=== PATIENT | female | born 1985 | race Caucasian/White ===

== ENCOUNTER 2017-10-24 08:09 | Outpatient (CLI) | payer OTHER ==
[2017-10-24] MEDS: LR 500 ML IV (09:59)
[2017-10-24] MEDS: ONDANSETRON 4MG/2ML VIAL (J2405) IV (10:09)
[2017-10-24 10:14] LABS: HEMATOCRIT 34.8 % (36.0-47.0); MEAN CORPUSCULAR HEMOGLOBIN 28.8 pg (27.0-33.0); MEAN CORPUSCULAR HGB CONC 31.6 g/dl (32.0-36.5); MEAN CORPUSCULAR VOLUME 91.1 fl (80.0-96.0); PLATELET COUNT, AUTOMATED 128 10^3/uL (150-450); RED BLOOD COUNT 3.82 10^6/uL (4.00-5.40); RED CELL DISTRIBUTION WIDTH 22.5 % (11.5-14.5); WHITE BLOOD COUNT 12.1 10^3/uL (4.0-10.0)
[2017-10-24 10:25] LABS: AMORPHOUS SEDIMENT SMALL (NEGATIVE); APPEARANCE, URINE HAZY (CLEAR); BACTERIA, URINE AUTO 1+ (NEGATIVE); BILIRUBIN, URINE AUTO NEGATIVE (NEGATIVE); BLOOD, URINE BLOOD NEGATIVE (NEGATIVE); COLOR, URINE YELLOW (YELLOW); GLUCOSE, URINE (UA) AUTO NEGATIVE (NEGATIVE); KETONE, URINE AUTO TRACE mg/dL (NEGATIVE); LEUKOCYTE ESTERASE, URINE AUTO NEGATIVE (NEGATIVE); MUCUS, URINE SMALL (NEGATIVE); NITRITE, URINE AUTO NEGATIVE (NEGATIVE); PROTEIN, URINE AUTO NEGATIVE (NEGATIVE); RBC, URINE AUTO 2 /HPF (0-3); SPECIFIC GRAVITY URINE AUTO 1.018 (1.002-1.035); SQUAMOUS EPITHELIAL CELL UR AU 2 /HPF (0-6); WBC, URINE AUTO 3 /HPF (0-3)
[2017-10-24 11:16] LABS: ALBUMIN 2.7 GM/DL (3.2-5.2); ALBUMIN/GLOBULIN RATIO 0.84 (1.00-1.93); ALKALINE PHOSPHATASE 122 U/L (45-117); ALT/SGPT 15 U/L (12-78); ANION GAP 10 MEQ/L (8-16); AST/SGOT 16 U/L (7-37); BILIRUBIN,TOTAL 0.7 MG/DL (0.2-1.0); BLOOD UREA NITROGEN 7 MG/DL (7-18); CALCIUM LEVEL 8.4 MG/DL (8.5-10.1); CARBON DIOXIDE LEVEL 22 MEQ/L (21-32); CHLORIDE LEVEL 107 MEQ/L (98-107); CREATININE FOR GFR 0.45 MG/DL (0.55-1.30); GLOMERULAR FILTRATION RATE > 60.0 (>60); GLUCOSE, FASTING 80 MG/DL (70-100); POTASSIUM SERUM 3.5 MEQ/L (3.5-5.1); SODIUM LEVEL 139 MEQ/L (136-145); TOTAL PROTEIN 5.9 GM/DL (6.4-8.2)
[2017-10-24] MEDS: LR 1,000 ML IV (11:40)
== END 2017-10-24 20:05 | disposition home or self-care (01) ==
LOC: M LDO 08:09
DX: O21.9 Vomiting of pregnancy, unspecified (principal); O30.043 Twin pregnancy, dichorionic/diamniotic, third trimester; O47.03 False labor before 37 completed weeks of gestation, third trimester; Z3A.32 32 weeks gestation of pregnancy
CPT/HCPCS: J2405

== ENCOUNTER 2017-11-18 09:19 | Outpatient (CLI) | payer OTHER | END 2017-11-18 10:57 | disposition home or self-care (01) | LOC: M LDO 09:19 | DX: O30.043 Twin pregnancy, dichorionic/diamniotic, third trimester (principal); Z3A.36 36 weeks gestation of pregnancy; O47.03 False labor before 37 completed weeks of gestation, third trimester | CPT/HCPCS: 59025 ==

== ENCOUNTER 2017-11-21 10:41 | Inpatient (IN) | payer OTHER ==
[2017-11-21 11:46] LABS: HEMOGLOBIN 11.9 g/dl (12.0-15.5); MEAN CORPUSCULAR HEMOGLOBIN 28.9 pg (27.0-33.0); MEAN CORPUSCULAR HGB CONC 32.2 g/dl (32.0-36.5); MEAN CORPUSCULAR VOLUME 89.8 fl (80.0-96.0); PLATELET COUNT, AUTOMATED 126 10^3/uL (150-450); RED BLOOD COUNT 4.12 10^6/uL (4.00-5.40); RED CELL DISTRIBUTION WIDTH 19.4 % (11.5-14.5); WHITE BLOOD COUNT 10.4 10^3/uL (4.0-10.0)
[2017-11-21] MEDS: PENICILLIN G POTASSIUM IV 5 MU in D5W MINI-BAG PLUS 100 ML IV (12:22)
[2017-11-21] MEDS: BETAMETHASONE SOLUSPAN 6MG/ML INJ 5ML (J0702) IM (12:29)
[2017-11-21] MEDS: miSOPROStol 50 MCG 1/2 TAB (S0191) PO (12:33)
[2017-11-21] MEDS: PENICILLIN G POTASSIUM IV 2.5 MU in APPROPRIATE DILUENT 1 EA IV ×2 (16:31→20:32)
[2017-11-21] MEDS: OXYTOCIN DRIP 30 UNITS in APPROPRIATE DILUENT 1 EA IV (17:39)
[2017-11-21] MEDS: LR 1,000 ML IV ×2 (17:44→20:44)
[2017-11-21] MEDS: LACTATED RINGER'S 1000 ML IV (20:35)
[2017-11-21] MEDS ORDERED: FENTANYL 2MCG/ML ROPIVACAINE 0.2% IN 0.9% NACL 200ML IVBAG As Ordered (20:50)
[2017-11-21] MEDS ORDERED: EPIDURAL COMMENT XX (22:00)
[2017-11-21] MEDS ORDERED: REFRIGERATOR IV KEYS XX (22:00)
[2017-11-21] MEDS ORDERED: NALOXONE INJ 0.4 MG/1 ML VIAL (J2310) IV (22:00)
[2017-11-21] MEDS ORDERED: ePHEDrine SULFATE 25 MG/5 ML(5MG/ML) SYRINGE IV (22:00)
[2017-11-21] MEDS ORDERED: EPIDURAL/PCA KEYS XX (22:00)
[2017-11-21] MEDS ORDERED: diphenhydrAMINE INJ 50MG/ML VIAL (J1200) IV (22:00)
[2017-11-21] MEDS ORDERED: LACTATED RINGER'S 1000 ML IV (22:00)
[2017-11-21] MEDS: FENTANYL/ROPIVACAINE/NACL BAG 200 ML EPIDURAL (22:36)
[2017-11-22] MEDS: PENICILLIN G POTASSIUM IV 2.5 MU in APPROPRIATE DILUENT 1 EA IV (01:10)
[2017-11-22] MEDS: ONDANSETRON 4MG/2ML VIAL (J2405) IV (02:17)
[2017-11-22] MEDS ORDERED: DIBUCAINE 1% OINTMENT 30GM TOP (04:00)
[2017-11-22] MEDS ORDERED: IBUPROFEN 800 MG TAB PO (04:00)
[2017-11-22] MEDS ORDERED: RHOGAM 300 MCG (1500 IU) INJ (J2790) IM (04:00)
[2017-11-22] MEDS ORDERED: METOCLOPRAMIDE INJ 10MG/2ML VIAL (J2765) IV (04:00)
[2017-11-22] MEDS ORDERED: ACETAMINOPHEN TAB 650MG DOSE (2X325MG) PO (04:00)
[2017-11-22] MEDS ORDERED: MEASLES,MUMPS,RUBELLA VACCINE INJ (MMR-II) (90707) SC (04:00)
[2017-11-22] MEDS: miSOPROStol 200 MCG TAB (S0191) PR (04:26)
[2017-11-22] MEDS: OXYTOCIN DRIP 30 UNITS in APPROPRIATE DILUENT 1 EA IV (04:26)
[2017-11-22] MEDS: PRENATAL VITAMINS CHEWABLE TABLET PO (10:03)
[2017-11-22] MEDS: DOCUSATE SODIUM 100 MG CAP PO ×2 (10:03→20:38)
[2017-11-23] MEDS: PRENATAL VITAMINS CHEWABLE TABLET PO (08:19)
[2017-11-23] MEDS: DOCUSATE SODIUM 100 MG CAP PO (08:20)
== END 2017-11-23 11:15 | disposition home or self-care (01) | DRG 775 ==
LOC: M LDI 10:41 → M OBS 11-22 06:18
PROVIDERS: Obstetrics & Gynecology
PROC: 3E0DXGC Introduction of Other Therapeutic Substance into Mouth and Pharynx, External Approach (ICD-10-PCS; 2017-11-21)
PROC: 10E0XZZ Delivery of Products of Conception, External Approach (ICD-10-PCS; principal; 2017-11-22)
PROC: 10907ZC Drainage of Amniotic Fluid, Therapeutic from Products of Conception, Via Natural or Artificial Opening (ICD-10-PCS; 2017-11-22)
DX: O41.03X1 Oligohydramnios, third trimester, fetus 1 (principal); O60.14X1 Preterm labor third trimester with preterm delivery third trimester, fetus 1; O60.14X2 Preterm labor third trimester with preterm delivery third trimester, fetus 2; Z37.2 Twins, both liveborn; Z3A.36 36 weeks gestation of pregnancy; O30.043 Twin pregnancy, dichorionic/diamniotic, third trimester; O99.824 Streptococcus B carrier state complicating childbirth